=== PATIENT | male | born 1990 | race Caucasian/White ===

== ENCOUNTER 2019-02-21 10:06 | Inpatient (IN) | payer MEDICAID, OTHER ==
[~2019-02-21] VITALS: Ht 180.3 cm; Wt 67.0 kg
[2019-02-21 11:06] LABS: Basophils # (auto) 0 uL; Basophils % (auto) 0.5 % (0.0-2.0); Eosinophils # (auto) 0.1 uL; Eosinophils % (auto) 2.6 % (0.0-7.0); Hematocrit 51.4 % (41.0-53.0); Hemoglobin 17.6 g/dL (13.5-17.5); Lymphocytes # (auto) 1.1 uL; Lymphocytes % (auto) 19.7 % (10.0-50.0); Mean Corpuscular Hemoglobin 32.2 pg (28.0-32.0); Mean Corpuscular Hgb Conc. 34.1 g/dL (32.0-36.0); Mean Corpuscular Volume 94.4 fL (80.0-100.0); Monocytes # (auto) 0.6 uL; Monocytes % (auto) 10.5 % (0.0-12.0); Neutrophils # (auto) 3.6 uL; Neutrophils % (auto) 66.7 % (37.0-80.0); Nucleated Red Blood Cells % 0.1 %; Platelet Count (auto) 271 10^3/uL (140-450); Red Blood Cells 5.45 10^6/uL (4.5-5.90); Red Cell Distribution Width 12.3 % (11.8-14.3); White Blood Cell 5.4 10^3/uL (4.4-10.8)
[2019-02-21 11:22] LABS: Albumin 4.6 g/dL (3.4-5.0); Calcium 9.4 mg/dL (8.5-10.1); Potassium 4.7 mmol/L (3.5-5.1)
[2019-02-21 11:25] LABS: BUN/Creatinine Ratio 14.9; Bilirubin, Total 0.5 mg/dL (0.2-1.0)
[2019-02-21] MEDS ORDERED: ONDANSETRON HCL 4 MG/2 ML VIAL IV ONE ×5 (13:00→22:45)
[2019-02-21] MEDS ORDERED: HYDROmorphone HCL 2 MG/ML VL IV ONE ×2 (13:00→18:00)
[2019-02-21] MEDS ORDERED: diphenhdrAMINE HCL 50 MG/1 ML VL IV ONE ×4 (13:30→23:00)
[2019-02-21] MEDS ORDERED: CARISOPRODOL 350 MG TAB PO ONE ×2 (16:30→19:00)
[2019-02-21] MEDS ORDERED: IOTHALAMATE MEGLUMINE INJ 250ML BOT UR ONE (18:04)
[2019-02-21] MEDS ORDERED: diphenhdrAMINE HCL 50 MG/1 ML VL ONE (18:17)
[2019-02-21] MEDS: cefTRIAXone 1GM/50ML D5W 50 ML IV ONE ×2 (18:45→22:54)
[2019-02-21] MEDS ORDERED: MORPHINE SULFATE 4 MG/ML SYR/VIAL IV ONE (19:00)
[2019-02-21 20:12] LABS: Basophils # (auto) 0.1 uL; Basophils % (auto) 0.7 % (0.0-2.0); Eosinophils # (auto) 0.2 uL; Eosinophils % (auto) 2.4 % (0.0-7.0); Lymphocytes # (auto) 2.1 uL; Lymphocytes % (auto) 25.8 % (10.0-50.0); Mean Corpuscular Hgb Conc. 32.6 g/dL (32.0-36.0); Mean Corpuscular Volume 91.9 fL (80.0-100.0); Monocytes # (auto) 0.5 uL; Monocytes % (auto) 6.1 % (0.0-12.0); Neutrophils # (auto) 5.2 uL; Nucleated Red Blood Cells % 0.1 %; Platelet Count (auto) 179 10^3/uL (140-450); Red Blood Cells 4.35 10^6/uL (4.5-5.90); Red Cell Distribution Width 13.8 % (11.8-14.3); White Blood Cell 7.9 10^3/uL (4.4-10.8)
[2019-02-21] MEDS ORDERED: HYDROmorphone HCL 2 MG/ML VL IV PRN (20:15)
[2019-02-21] MEDS ORDERED: MORPHINE SULF INJ 2 MG/ML SYRINGE 1ML IV PRN (20:15)
[2019-02-21] MEDS ORDERED: NITROGLYCERIN 0.4 MG SL TAB SL PRN (20:15)
[2019-02-21 20:27] LABS: INR 1.05 (0.9-1.15)
[2019-02-21 20:31] LABS: Albumin 4.5 g/dL (3.4-5.0); Anion Gap 5 (5-15); Blood Urea Nitrogen 17 mg/dL (7-18); Calcium 9.1 mg/dL (8.5-10.1); Carbon Dioxide 29 mmol/L (21-32); Chloride 104 mmol/L (98-107); GFR African American 105 mL/min; GFR Non-African American 87 mL/min; Glucose 80 mg/dL (74-106); Potassium 4.7 mmol/L (3.5-5.1); Sodium 138 mmol/L (136-145)
[2019-02-21 20:36] LABS: Alanine Aminotransferase 22 U/L (16-61); Alkaline Phosphatase 76 U/L (45-117); Aspartate Aminotransferase 18 U/L (15-37); Bilirubin, Total 0.7 mg/dL (0.2-1.0)
[2019-02-21] MEDS ORDERED: ETOMIDATE (2MG/ML) 20ML VIAL IV ONE (21:30)
[2019-02-21] MEDS ORDERED: fentaNYL CITRATE 100 MCG/2 ML VL IV ONE (21:30)
[2019-02-21] MEDS ORDERED: LIDOCAINE 2% JELLY 11ml (GLYDO) UR ONE (21:45)
[2019-02-21] MEDS ORDERED: LORazepam 2MG/ML-1ML VIAL ONE (22:07)
[2019-02-21] MEDS ORDERED: MORPHINE SULFATE 10 MG/ML INJ 1ML SDV IV ONE (22:45)
[2019-02-22 00:14] LABS: Amphetamine Screen, Urine NEGATIVE (NEGATIVE); Barbiturate Scree,Urine NEGATIVE (NEGATIVE); Benzodiazephine Screen, Urine NEGATIVE (NEGATIVE); Cannabinoid Screen, Urine POSITIVE (NEGATIVE); Cocaine Screen, Urine NEGATIVE (NEGATIVE); Opiate Scree,Urine POSITIVE (NEGATIVE); Phencyclidine Screen, Urine NEGATIVE (NEGATIVE)
[2019-02-22] MEDS ORDERED: LORazepam 2MG/ML-1ML VIAL IV ONE (00:15)
[2019-02-22 00:16] LABS: Urine Amorphous Crystal FEW /hpf (None Seen); Urine Bacteria MOD /hpf (None Seen); Urine Blood TRACE /uL (Negative); Urine Mucus FEW (None Seen); Urine WBC 521 /hpf (0 - 3); Urine WBC Clumps PRESENT /hpf (None Seen)
[2019-02-22] MEDS ORDERED: ONDANSETRON HCL 4 MG/2 ML VIAL IV PRN (01:15)
[2019-02-22] MEDS ORDERED: LEVOFLOXACIN 750MG 150 ML IV ONE (01:45)
--- NOTE | 2019-02-22 02:45 | NUR ---
MS admit from ER [facility] admitted to tele/MS. Did not receive SBAR. Patient oriented to Vivek cifuentes RN, central unit, 223room, B bed, and unit policies regarding patient care and visiting hours. Patient weighed by bedscale and encouraged to call if they need something. All questions and concerns addressed, patient verbalized understanding.
[2019-02-22] MEDS: HYDROmorphone HCL 2 MG/ML VL IV PRN ×7 (02:52→22:25)
[2019-02-22] MEDS: ONDANSETRON HCL 4 MG/2 ML VIAL IV PRN ×4 (02:53→23:20)
--- NOTE | 2019-02-22 03:00 | NUR ---
paged hospitalist to notify of patient requesting Dilauded dosage increased and benadryl. awaiting call back .
--- NOTE | 2019-02-22 03:05 | NUR ---
Spoke to Jovi and notified him of patient requesting benadryl, and an increase of dilauded. new order given by hospitalist jovi, benadryl 50 mg po one time dose. read back and confirm.
[2019-02-22 03:30] VITALS: BP 124/76
[2019-02-22] MEDS ORDERED: diphenhdrAMINE HCL 25 MG CAP PO ONE (03:30)
--- NOTE | 2019-02-22 03:31 | NUR ---
paged manager of warehouse at patients request.
--- NOTE | 2019-02-22 03:38 | NUR ---
spoke to packing house laborer, and notified him patient requesting to talk to him, and he threatening to take out his singh catheter and wants an increase in pain medication. packing house laborer advised me that he will be up to talk to patient. will notify patient.
[2019-02-22] MEDS: HYDROcodone-ACET 7.5/325MG TAB PO PRN ×4 (03:46→23:20)
--- NOTE | 2019-02-22 04:52 | NUR ---
Telemetry admit from [facility] admitted to Telemetry unit after SBAR received. Patient oriented to Vivek Narayan primary RN, unit, room, bed, and unit policies regarding patient care and visiting hours. Patient now on continuous telemetry monitoring, tele box # [] and telemetry reading on arrival to unit is []. Patient placed on bedside oxygen, weighed by bedscale and encouraged to call if they need something. All questions and concerns addressed, patient verbalized understanding. Note: [] Addendum: 02/22/19 at 0455 by Vivek Narayan RN wrong note.
[2019-02-22 05:00] VITALS: BP 101/57
[2019-02-22] MEDS ORDERED: VARE1TAB PO (06:08)
[2019-02-22] MEDS ORDERED: ALPR0.5T PO (06:08)
--- NOTE | 2019-02-22 07:30 | NUR ---
OPENING NOTE The patient is received alert and oriented times four with no SOB or s/s of distress at this time. The patient is resting in bed in the lowest position with call light within reach, will continue to monitor and POC.
[2019-02-22 09:00] VITALS: BP 93/65
[2019-02-22] MEDS ORDERED: cefTRIAXone 1GM/50ML D5W 50 ML IV SCH (09:00)
[2019-02-22] MEDS: FAMOTIDINE 20 MG TAB PO SCH ×2 (09:34→19:22)
--- NOTE | 2019-02-22 10:20 | NUR ---
HOSPITALIST BEDSIDE Dr. Perez is bedside and updates the patient on the POC.
[2019-02-22] MEDS ORDERED: ERTAPENEM SOD INJ 1 GM in SODIUM CHL 0.9% 50 ML IV ONE (10:30)
[2019-02-22 13:00] VITALS: BP 118/63
--- NOTE | 2019-02-22 15:13 | NUR ---
PHYSICIAN CALLS Dr. Perez calls and is made aware of the patient's current status. Dr. Perez places orders via telephone with read back, will continue POC.
[2019-02-22 17:00] VITALS: BP 98/58
[2019-02-22] MEDS: ALPRAZolam 0.5 MG TAB PO SCH (19:22)
[2019-02-22 21:36] VITALS: BP 145/64
[2019-02-22] MEDS: TEMAZEPAM 15 MG CAP PO PRN (22:25)
[2019-02-23] MEDS: HYDROmorphone HCL 2 MG/ML VL IV PRN ×9 (01:16→20:18)
--- NOTE | 2019-02-23 01:45 | NUR ---
Patient c/o of itching after last dose of Hydromorphone, patient requesting for Benadryl. Hospitalist paged.
--- NOTE | 2019-02-23 02:14 | NUR ---
No callback from Hospitalist, paged again.
[2019-02-23] MEDS ORDERED: diphenhdrAMINE HCL 25 MG CAP PO ONE (02:30)
[2019-02-23 05:29] VITALS: BP 93/61
[2019-02-23 05:58] LABS: Basophils # (auto) 0.1 uL; Basophils % (auto) 1.2 % (0.0-2.0); Eosinophils # (auto) 0.3 uL; Eosinophils % (auto) 5.3 % (0.0-7.0); Hemoglobin 15.3 g/dL (13.5-17.5); Lymphocytes # (auto) 1.7 uL; Mean Corpuscular Hemoglobin 32.1 pg (28.0-32.0); Mean Corpuscular Volume 94.4 fL (80.0-100.0); Monocytes # (auto) 0.5 uL; Monocytes % (auto) 9.8 % (0.0-12.0); Neutrophils # (auto) 2.5 uL; Neutrophils % (auto) 49.7 % (37.0-80.0); Nucleated Red Blood Cells % 0.1 %; Platelet Count (auto) 222 10^3/uL (140-450); Red Blood Cells 4.77 10^6/uL (4.5-5.90); Red Cell Distribution Width 12.3 % (11.8-14.3); White Blood Cell 5.1 10^3/uL (4.4-10.8)
[2019-02-23 06:12] LABS: Calcium 8.7 mg/dL (8.5-10.1); Potassium 4.1 mmol/L (3.5-5.1)
[2019-02-23] MEDS: HYDROcodone-ACET 7.5/325MG TAB PO PRN ×3 (06:50→21:08)
--- NOTE | 2019-02-23 07:30 | NUR ---
Opening Shift Note Assumed care of patient, awake and alert x4. No S/S of distress/SOB, testicular pain of 7/10, will medicate with pain meds per MD order. Respirations are even and unlabored on RA. Updated on POC and instructed to call for assistance as needed, patient verbalized understanding. Bed locked in lowest position, side rails up x2, call light within reach. Will continue to monitor for changes Q1hr and PRN.
[2019-02-23] MEDS: ALPRAZolam 0.5 MG TAB PO SCH ×2 (08:31→21:43)
[2019-02-23] MEDS: FAMOTIDINE 20 MG TAB PO SCH ×2 (08:31→21:43)
[2019-02-23] MEDS: ERTAPENEM SOD INJ 1 GM in SODIUM CHL 0.9% 50 ML IV SCH (08:31)
[2019-02-23 09:00] VITALS: BP 95/55
--- NOTE | 2019-02-23 09:08 | NUR ---
Patient was screaming in pain, checked on the pt. and his catheter came out fully inflated. Pt. states that he had a bladder spasm and it just came out on its own. Will notify
--- NOTE | 2019-02-23 09:33 | NUR ---
MD Perez made aware of catheter coming out.
--- NOTE | 2019-02-23 10:00 | NUR ---
SPOKE WITH DR VELASCO ORDERS RECEIVED TO CONSULT RADIOLOGY FOR PLACEMENT OF LANCE CATHETER UNDER GUIDANCE.
--- NOTE | 2019-02-23 10:10 | NUR ---
SPOKE WITH RADIOLOGY RADIOLOGIST WILL NOT ATTEMPT TO PLACE LANCE CATHETER, FIRST ATTEMPT WAS UNSUCCESSFUL AND DR DANIELLE STATS IT NEEDS TO BE DONE IN OR.
--- NOTE | 2019-02-23 11:00 | NUR ---
SPOKE WITH DR GUZMÁN RECEIVED ORDERS TO REINSERT LANCE CATHETER.
--- NOTE | 2019-02-23 12:15 | NUR ---
LANCE CATHETER UNABLE TO BE REINSERTED. MUCH RESISTANCE MET AFTER SEVERAL PASSES. WILL MAKE DR. GUZMÁN AWARE OF FAILED ATTEMPT.
--- NOTE | 2019-02-23 13:00 | NUR ---
PATIENT IS WELL EDUCATED AND VERY AWARE OF ALL UROLOGICAL ISSUES. STATES THAT URO JET CATHETER WITH LIDOCAINE WILL ONLY INFLAME HIS URETHRA FURTHER. WILL ADVISE DR. GUZMÁN.
[2019-02-23] MEDS: ONDANSETRON HCL 4 MG/2 ML VIAL IV PRN (13:13)
--- NOTE | 2019-02-23 13:38 | NUR ---
PAGED DR. GUZMÁN REGARDING FAILED LANCE CATHETER ATTEMPT.
--- NOTE | 2019-02-23 13:57 | NUR ---
DR. GUZMÁN AT BEDSIDE. DR ATTEMPTED TO INSERT LANCE CATHETER, PATIENT WAS IN TREMENDOUS PAIN ON FIRST INSERTION, STOPPED AND SAID IT WOULD NEED TO BE DONE IN THE OR. WILL PLACE ORDERS. KEEP PATIENT NPO UNTIL FURTHER NOTICE.
--- NOTE | 2019-02-23 16:41 | NUR ---
PATIENT TAKEN TO THE OR FOR PROCEDURE. NO S/S OF DISTRESS UPON DEPARTURE.
[2019-02-23 16:42] VITALS: BP 125/99
--- NOTE | 2019-02-23 17:02 | NUR ---
patient wasn't in the room for 1700 vitals
--- NOTE | 2019-02-23 17:02 | NUR ---
patient was gone for procedure for 1700 vitals
[2019-02-23] MEDS ORDERED: MIDAZOLAM HCL 1MG/1ML-2 ML VIAL ONE ×2 (17:38→18:31)
[2019-02-23] MEDS ORDERED: MIDAZOLAM HCL 1MG/1ML-2 ML VIAL IV ONE (18:00)
[2019-02-23] MEDS ORDERED: ceFAZolin 1GM/50ML 50 ML IV ONE (18:24)
[2019-02-23] MEDS ORDERED: fentaNYL CITRATE 100 MCG/2 ML VL ONE (18:31)
[2019-02-23] MEDS ORDERED: PROPOFOL 10 MG/ML 20 ML IV ONE (18:50)
[2019-02-23] MEDS ORDERED: LIDOCAINE 2% (LOCAL ANESTH.) PF 5ml SDV ONE (18:50)
[2019-02-23] MEDS ORDERED: HYDROmorphone HCL 2 MG/ML VL IV PRN (19:30)
[2019-02-23] MEDS ORDERED: hydrALAZINE HCL 20 MG/ML VL IV PRN (19:30)
[2019-02-23] MEDS ORDERED: ONDANSETRON HCL 4 MG/2 ML VIAL IV PRN (19:30)
[2019-02-23] MEDS ORDERED: ePHEDrine SULFATE 50 MG/ML AMP IV PRN (19:30)
[2019-02-23] MEDS: diphenhdrAMINE HCL 50 MG/1 ML VL IV PRN ×2 (19:40→20:02)
[2019-02-23] MEDS ORDERED: diphenhdrAMINE HCL 50 MG/1 ML VL ONE (19:40)
--- NOTE | 2019-02-23 20:25 | NUR ---
RECEIVED PATIENT FROM OR Patient has arrived on unit from OR. Alondra BUTT has given report on the patient.
--- NOTE | 2019-02-23 20:55 | NUR ---
PATIENT NOT IN ROOM Patient left the unit to smoke AMA.
[2019-02-23 21:45] VITALS: BP 113/73
[2019-02-23] MEDS: TEMAZEPAM 15 MG CAP PO PRN (21:45)
--- NOTE | 2019-02-24 03:00 | NUR ---
PAIN ASSESSMENT The patient requests pain medication for his penile and testicular pain. He reports that his pain is currently 7/10. Will treat with PRN pain medication.
[2019-02-24] MEDS: HYDROmorphone HCL 2 MG/ML VL IV PRN ×4 (03:05→12:39)
[2019-02-24 05:23] VITALS: BP 97/52
--- NOTE | 2019-02-24 07:30 | NUR ---
Opening Shift Note Assumed care of patient, awake and alert x4. No S/S of distress/SOB, testicular pain of 6/10, will medicate with pain meds per MD order. Respirations are even and unlabored on RA. Updated on POC and instructed to call for assistance as needed, patient verbalized understanding. Bed locked in lowest position, side rails up x2, call light within reach. Will continue to monitor for changes Q1hr and PRN.
[2019-02-24 08:00] VITALS: BP 91/54
[2019-02-24] MEDS: HYDROcodone-ACET 7.5/325MG TAB PO PRN (08:11)
[2019-02-24] MEDS: ALPRAZolam 0.5 MG TAB PO SCH (09:50)
[2019-02-24] MEDS: FAMOTIDINE 20 MG TAB PO SCH (09:50)
[2019-02-24] MEDS: ERTAPENEM SOD INJ 1 GM in SODIUM CHL 0.9% 50 ML IV SCH (09:51)
[2019-02-24 12:16] VITALS: BP 91/54
--- NOTE | 2019-02-24 13:15 | NUR ---
Discharge instructions given as ordered. Encourage to follow up with PMD and urologist as instructed. All questions and concerns addressed. Patient verbalized understanding. Medication reconciliation form completed and copy given to patient. IV removed with catheter intact, pressure dressing applied, leg singh catheter remains in place as ordered. Patient refused to be taken to vehicle via wheelchair, walked down with all personal belongings, accompanied by staff. No distress noted at time of departure.
== END 2019-02-24 13:15 | disposition home or self-care (01) | DRG 468 ==
LOC: ER 10:08 → OVERFLOW 10:09 → CENTRAL 02-22 02:35
PROVIDERS: ADMIT Nurse Practitioner Acute Care; ATTEND Internal Medicine
PROC: 0T9B80Z Drainage of Bladder with Drainage Device, Via Natural or Artificial Opening Endoscopic (ICD-10-PCS; principal; 2019-02-23 18:25)
DX: N13.9 Obstructive and reflux uropathy, unspecified (principal); F11.20 Opioid dependence, uncomplicated; N39.0 Urinary tract infection, site not specified; B95.2 Enterococcus as the cause of diseases classified elsewhere; J44.9 Chronic obstructive pulmonary disease, unspecified; F17.210 Nicotine dependence, cigarettes, uncomplicated; Z87.440 Personal history of urinary (tract) infections; Z90.79 Acquired absence of other genital organ(s); Z88.8 Allergy status to other drugs, medicaments and biological substances; R33.9 Retention of urine, unspecified
CPT/HCPCS: 36415; 51702; 71045; 74176; 76870; 80048; 80053; 80307; 81001; 84484; 85025; 85610; 85730; 87086; 87088; 87186; 93005; 96365; 96375; 96376; G0378; J0690; J0696; J1335; J1956; J2001; J2250; J2405; J2704

== ENCOUNTER 2019-02-28 07:37 | Emergency (ER) | payer MEDICAID ==
[~2019-02-28] VITALS: Ht 180.3 cm; Wt 72.6 kg
[~2019-02-28 07:37] MED LIST: ALPR0.5T PO; VARE1TAB PO
[2019-02-28 08:26] VITALS: BP 132/74
== END 2019-02-28 08:43 | disposition left against medical advice (07) ==
LOC: ER 07:40
DX: R33.9 Retention of urine, unspecified (principal); M62.838 Other muscle spasm; F41.9 Anxiety disorder, unspecified; Z53.29 Procedure and treatment not carried out because of patient's decision for other reasons
CPT/HCPCS: 99281; J7030

== ENCOUNTER 2019-04-24 19:09 | Emergency (ER) | payer MEDICAID ==
[~2019-04-24] VITALS: Ht 180.3 cm; Wt 74.8 kg
[2019-04-24] MEDS ORDERED: MORPHINE SULFATE 4 MG/ML SYR/VIAL ONE ×2 (21:54)
[2019-04-24] MEDS ORDERED: LORazepam 2MG/ML-1ML VIAL ONE (21:54)
[2019-04-24] MEDS ORDERED: ONDANSETRON HCL 4 MG/2 ML VIAL ONE (21:55)
[2019-04-24] MEDS ORDERED: diphenhdrAMINE HCL 50 MG/1 ML VL IV ONE (22:15)
[2019-04-24] MEDS ORDERED: ETOMIDATE (2MG/ML) 20ML VIAL IV ONE (22:45)
[2019-04-24 22:58] LABS: Basophils # (auto) 0.1 uL; Eosinophils # (auto) 0.2 uL; Eosinophils % (auto) 2.8 % (0.0-7.0); Hematocrit 46.5 % (41.0-53.0); Lymphocytes # (auto) 2.3 uL; Lymphocytes % (auto) 29.6 % (10.0-50.0); Mean Corpuscular Hemoglobin 31.9 pg (28.0-32.0); Mean Corpuscular Hgb Conc. 34.4 g/dL (32.0-36.0); Mean Corpuscular Volume 92.9 fL (80.0-100.0); Monocytes # (auto) 0.6 uL; Monocytes % (auto) 7.4 % (0.0-12.0); Neutrophils # (auto) 4.7 uL; Neutrophils % (auto) 59.2 % (37.0-80.0); Platelet Count (auto) 305 10^3/uL (140-450); Red Cell Distribution Width 12.1 % (11.8-14.3); White Blood Cell 7.9 10^3/uL (4.4-10.8)
[2019-04-24 23:11] LABS: Albumin 3.9 g/dL (3.4-5.0); BUN/Creatinine Ratio 17.4; Calcium 8.7 mg/dL (8.5-10.1); Potassium 3.7 mmol/L (3.5-5.1)
[2019-04-24 23:14] LABS: Bilirubin, Total 0.2 mg/dL (0.2-1.0); Total Protein 7.8 g/dL (6.4-8.2)
[2019-04-24] MEDS ORDERED: HYDROmorphone HCL 2 MG/ML VL IV ONE (23:45)
[2019-04-25] MEDS ORDERED: diphenhdrAMINE HCL 50 MG/1 ML VL IV ONE
[2019-04-25 00:05] LABS: Urine Bacteria NONE SEEN /hpf (None Seen); Urine Blood Negative /uL (Negative); Urine Specific Gravity 1.019 (1.001-1.035); Urine WBC 24 /hpf (0 - 3)
[2019-04-25] MEDS ORDERED: cefTRIAXone 1GM/50ML D5W 50 ML IV ONE ×4 (00:59→01:00)
[2019-04-25 01:03] VITALS: BP 99/87
[2019-04-25] MEDS ORDERED: HYDROcodone-ACET 10/325MG TAB PO ONE (02:00)
[2019-04-25] MEDS ORDERED: GABAPENTIN 100 MG CAP PO SCH (06:00)
[2019-04-25] MEDS ORDERED: AMIODARONE HCL 200 MG TAB PO SCH (10:00)
== END 2019-04-25 02:46 | disposition home or self-care (01) ==
LOC: ER 19:11
DX: N39.0 Urinary tract infection, site not specified (principal); R33.9 Retention of urine, unspecified; F17.210 Nicotine dependence, cigarettes, uncomplicated; F12.10 Cannabis abuse, uncomplicated; Z88.8 Allergy status to other drugs, medicaments and biological substances
CPT/HCPCS: 36415; 51702; 74176; 80053; 81001; 85025; 96365; 96375; 96376; 99285; J0696; J2060; J2270; J2405

== ENCOUNTER 2019-04-27 23:47 | Emergency (ER) | payer MEDICAID ==
[~2019-04-27] VITALS: Ht 180.3 cm; Wt 72.6 kg
[2019-04-28] MEDS ORDERED: ONDANSETRON HCL 4 MG/2 ML VIAL IV ONE (00:45)
[2019-04-28] MEDS ORDERED: HYDROmorphone HCL 2 MG/ML VL IV ONE ×2 (00:45→03:15)
[2019-04-28] MEDS ORDERED: diphenhdrAMINE HCL 50 MG/1 ML VL IV ONE ×2 (01:00→03:15)
[2019-04-28] MEDS ORDERED: MIDAZOLAM HCL 5 MG/ML-1ML VIAL IV ONE (02:15)
[2019-04-28] MEDS ORDERED: fentaNYL CITRATE 100 MCG/2 ML VL IV ONE (02:15)
[2019-04-28] MEDS ORDERED: ETOMIDATE (2MG/ML) 20ML VIAL IV ONE (03:15)
[2019-04-28] MEDS ORDERED: LORazepam 2MG/ML-1ML VIAL IV ONE (03:15)
[2019-04-28] MEDS ORDERED: LORazepam 2MG/ML-1ML VIAL ONE (03:27)
[2019-04-28 03:30] VITALS: BP 113/74
== END 2019-04-28 04:16 | disposition home or self-care (01) ==
LOC: ER 23:56
DX: R33.9 Retention of urine, unspecified (principal); R10.9 Unspecified abdominal pain; F17.210 Nicotine dependence, cigarettes, uncomplicated; F12.10 Cannabis abuse, uncomplicated; Z88.8 Allergy status to other drugs, medicaments and biological substances
CPT/HCPCS: 51702; 96374; 96375; 96376; 99284; J1170; J1200; J2060; J2250; J2405; J3010

== ENCOUNTER 2019-05-03 21:56 | Emergency (ER) | payer MEDICAID ==
[~2019-05-03] VITALS: Ht 180.3 cm; Wt 72.6 kg
[2019-05-04] MEDS ORDERED: MIDAZOLAM HCL 5 MG/ML-1ML VIAL IV ONE (01:30)
[2019-05-04] MEDS ORDERED: ETOMIDATE (2MG/ML) 20ML VIAL IV ONE (01:30)
[2019-05-04] MEDS ORDERED: MIDAZOLAM HCL 1MG/1ML-2 ML VIAL ONE (01:54)
[2019-05-04] MEDS ORDERED: MIDAZOLAM HCL 1MG/1ML-2 ML VIAL IV ONE (02:00)
[2019-05-04 02:16] VITALS: BP 130/94
[2019-05-04] MEDS ORDERED: diphenhdrAMINE HCL 50 MG/1 ML VL IV ONE (02:30)
== END 2019-05-04 03:22 | disposition home or self-care (01) ==
LOC: ER 21:56
DX: R33.9 Retention of urine, unspecified (principal); F17.210 Nicotine dependence, cigarettes, uncomplicated; F12.10 Cannabis abuse, uncomplicated; Z76.5 Malingerer [conscious simulation]
CPT/HCPCS: 51702; 96374; 99285; J1200; J2250

== ENCOUNTER 2019-05-13 03:06 | Emergency (ER) | payer MEDICAID ==
[~2019-05-13] VITALS: Ht 177.8 cm; Wt 74.8 kg
[2019-05-13] MEDS ORDERED: SODIUM CHLORIDE 0.9% 1,000 ML IV ONE (08:36)
[2019-05-13] MEDS ORDERED: LORazepam 2MG/ML-1ML VIAL IV ONE (09:15)
[2019-05-13] MEDS ORDERED: MORPHINE SULF INJ 2 MG/ML SYRINGE 1ML IV ONE (09:15)
[2019-05-13] MEDS ORDERED: ONDANSETRON HCL 4 MG/2 ML VIAL IV ONE (09:30)
[2019-05-13 09:33] LABS: Basophils # (auto) 0 uL; Basophils % (auto) 0.6 % (0.0-2.0); Eosinophils # (auto) 0.1 uL; Eosinophils % (auto) 1.8 % (0.0-7.0); Hematocrit 44.6 % (41.0-53.0); Hemoglobin 15.5 g/dL (13.5-17.5); Lymphocytes # (auto) 1.7 uL; Lymphocytes % (auto) 22.7 % (10.0-50.0); Mean Corpuscular Hgb Conc. 34.9 g/dL (32.0-36.0); Mean Corpuscular Volume 91.9 fL (80.0-100.0); Monocytes # (auto) 0.5 uL; Monocytes % (auto) 6.9 % (0.0-12.0); Neutrophils # (auto) 5.1 uL; Nucleated Red Blood Cells % 0.1 %; Platelet Count (auto) 257 10^3/uL (140-450); Red Blood Cells 4.85 10^6/uL (4.5-5.90); Red Cell Distribution Width 12.2 % (11.8-14.3); White Blood Cell 7.6 10^3/uL (4.4-10.8)
[2019-05-13] MEDS ORDERED: diphenhdrAMINE HCL 50 MG/1 ML VL ONE (09:35)
[2019-05-13] MEDS ORDERED: diphenhdrAMINE HCL 50 MG/1 ML VL IV ONE (09:45)
[2019-05-13 09:48] LABS: Albumin 3.9 g/dL (3.4-5.0); BUN/Creatinine Ratio 17.5; Calcium 8.3 mg/dL (8.5-10.1); Magnesium 1.9 mg/dL (1.6-2.6); Potassium 3.8 mmol/L (3.5-5.1)
[2019-05-13 09:51] LABS: Bilirubin, Total 0.2 mg/dL (0.2-1.0); Total Protein 7.3 g/dL (6.4-8.2)
[2019-05-13] MEDS ORDERED: PROPOFOL 10 MG/ML 20 ML IV ONE ×6 (12:30→16:15)
[2019-05-13] MEDS ORDERED: MIDAZOLAM HCL 5 MG/ML-1ML VIAL IV ONE ×2 (12:30→16:15)
[2019-05-13] MEDS ORDERED: MIDAZOLAM HCL 1MG/1ML-2 ML VIAL ONE (12:46)
[2019-05-13 14:19] VITALS: BP 110/78
[2019-05-13] MEDS ORDERED: ETOMIDATE (2MG/ML) 20ML VIAL IV ONE (16:15)
== END 2019-05-13 16:16 | disposition left against medical advice (07) ==
LOC: ER 03:12
DX: R33.9 Retention of urine, unspecified (principal); N32.89 Other specified disorders of bladder
CPT/HCPCS: 36415; 51702; 80053; 83735; 85025; 96374; 96375; 99152; 99153; 99285; J1200; J2060; J2250; J2270; J2405; J2704

== ENCOUNTER 2020-03-21 20:37 | Emergency (ER) | payer MEDICAID ==
[~2020-03-21] VITALS: Ht 180.3 cm; Wt 72.6 kg
[2020-03-22] MEDS ORDERED: HYDROmorphone HCL 2 MG/ML VL IV ONE ×2 (02:15→03:15)
[2020-03-22] MEDS ORDERED: diphenhdrAMINE HCL 50 MG/1 ML VL IV ONE (02:15)
[2020-03-22 02:32] VITALS: BP 130/105
[2020-03-22] MEDS ORDERED: ONDANSETRON HCL 4 MG/2 ML VIAL IV ONE (02:45)
== END 2020-03-22 03:58 | disposition home or self-care (01) ==
LOC: ER 20:37
DX: N13.9 Obstructive and reflux uropathy, unspecified (principal); F41.9 Anxiety disorder, unspecified; F17.210 Nicotine dependence, cigarettes, uncomplicated; Z88.8 Allergy status to other drugs, medicaments and biological substances; Z79.899 Other long term (current) drug therapy
CPT/HCPCS: 96374; 96375; 96376; 99284; J1170; J1200; J2405

== ENCOUNTER 2020-03-31 08:01 | Emergency (ER) | payer MEDICAID ==
[~2020-03-31] VITALS: Ht 177.8 cm; Wt 72.6 kg
[2020-03-31 08:53] LABS: Basophils # (auto) 0 10 ^3/uL (0-0.2); Basophils % (auto) 0.5 % (0.0-2.0); Eosinophils # (auto) 0 10 ^3/uL (0-0.8); Eosinophils % (auto) 0.4 % (0.0-7.0); Hematocrit 44.3 % (41.0-53.0); Hemoglobin 15.2 g/dL (13.5-17.5); Lymphocytes # (auto) 0.9 10 ^3/uL (0.4-5.4); Lymphocytes % (auto) 10.3 % (10.0-50.0); Mean Corpuscular Hgb Conc. 34.3 g/dL (32.0-36.0); Mean Corpuscular Volume 90.6 fL (80.0-100.0); Monocytes # (auto) 0.4 10 ^3/uL (0-1.3); Neutrophils # (auto) 7.5 10 ^3/uL (1.6-8.6); Neutrophils % (auto) 83.8 % (37.0-80.0); Platelet Count (auto) 302 10^3/uL (140-450); Red Blood Cells 4.89 10^6/uL (4.5-5.90); Red Cell Distribution Width 12.3 % (11.8-14.3); White Blood Cell 8.9 10^3/uL (4.4-10.8)
[2020-03-31 09:21] LABS: Albumin 4.2 g/dL (3.4-5.0); BUN/Creatinine Ratio 12.1; Calcium 8.7 mg/dL (8.5-10.1); Potassium 3.3 mmol/L (3.5-5.1)
[2020-03-31 09:24] LABS: Bilirubin, Total 0.4 mg/dL (0.2-1.0); Total Protein 7.6 g/dL (6.4-8.2)
[2020-03-31] MEDS ORDERED: ONDANSETRON HCL 4 MG/2 ML VIAL IV ONE ×2 (10:45→15:00)
[2020-03-31] MEDS ORDERED: HYDROmorphone HCL 2 MG/ML VL IV ONE ×2 (10:45→15:00)
[2020-03-31] MEDS ORDERED: diphenhdrAMINE HCL 50 MG/1 ML VL ONE (10:52)
[2020-03-31] MEDS ORDERED: diphenhdrAMINE HCL 50 MG/1 ML VL IV ONE (11:00)
[2020-03-31 11:25] LABS: INR 1.04 (0.9-1.15); Partial Thromboplastin Time 25.9 sec (23.0-31.2)
[2020-03-31] MEDS ORDERED: POTASSIUM CHL 20 Meq TABLET PO ONE ×2 (13:00→14:45)
[2020-03-31] MEDS ORDERED: ETOMIDATE (2MG/ML) 20ML VIAL IV ONE (14:15)
[2020-03-31] MEDS ORDERED: LIDOCAINE 2%HCL (LOCAL ANESTH.) INJ 20ML MDV ONE (14:19)
[2020-03-31 14:58] VITALS: BP 138/108
== END 2020-03-31 15:44 | disposition home or self-care (01) ==
LOC: ER 08:01
DX: Z46.6 Encounter for fitting and adjustment of urinary device (principal); N13.8 Other obstructive and reflux uropathy; E87.6 Hypokalemia; Z88.8 Allergy status to other drugs, medicaments and biological substances
CPT/HCPCS: 36415; 51705; 71045; 74176; 76942; 80053; 83690; 83735; 85025; 85610; 85730; 96374; 96375; 96376; 99152; 99285; J1170; J1200; J2405; 51702

== ENCOUNTER 2020-04-06 05:48 | Emergency (ER) | payer MEDICAID ==
[~2020-04-06] VITALS: Ht 177.8 cm; Wt 72.6 kg
[2020-04-06 07:14] LABS: Basophils # (auto) 0.1 10 ^3/uL (0-0.2); Basophils % (auto) 1.2 % (0.0-2.0); Eosinophils # (auto) 0.2 10 ^3/uL (0-0.8); Eosinophils % (auto) 3.5 % (0.0-7.0); Hematocrit 43.9 % (41.0-53.0); Hemoglobin 15.2 g/dL (13.5-17.5); Lymphocytes # (auto) 2.2 10 ^3/uL (0.4-5.4); Lymphocytes % (auto) 33.1 % (10.0-50.0); Mean Corpuscular Hemoglobin 31.5 pg (28.0-32.0); Mean Corpuscular Hgb Conc. 34.7 g/dL (32.0-36.0); Mean Corpuscular Volume 90.9 fL (80.0-100.0); Monocytes # (auto) 0.7 10 ^3/uL (0-1.3); Neutrophils # (auto) 3.5 10 ^3/uL (1.6-8.6); Neutrophils % (auto) 52.2 % (37.0-80.0); Platelet Count (auto) 295 10^3/uL (140-450); Red Blood Cells 4.83 10^6/uL (4.5-5.90); Red Cell Distribution Width 12.3 % (11.8-14.3); White Blood Cell 6.6 10^3/uL (4.4-10.8)
[2020-04-06] MEDS ORDERED: MIDAZOLAM HCL 5 MG/ML-1ML VIAL IV ONE (07:15)
[2020-04-06] MEDS ORDERED: SODIUM CHLORIDE 0.9% 1,000 ML IV ONE (07:15)
[2020-04-06] MEDS ORDERED: HYDROmorphone HCL 2 MG/ML VL IV ONE (07:15)
[2020-04-06 07:32] LABS: Albumin 4.4 g/dL (3.4-5.0); Calcium 8.9 mg/dL (8.5-10.1); Potassium 3.6 mmol/L (3.5-5.1)
[2020-04-06 07:36] LABS: Bilirubin, Total 0.2 mg/dL (0.2-1.0); Total Protein 7.6 g/dL (6.4-8.2)
[2020-04-06 07:49] LABS: INR 1.02 (0.9-1.15); Magnesium 2.1 mg/dL (1.6-2.6); Partial Thromboplastin Time 26.2 sec (23.0-31.2)
[2020-04-06] MEDS ORDERED: LIDOCAINE 2%HCL (LOCAL ANESTH.) INJ 10ml MDV IJ ONE (08:30)
[2020-04-06 09:00] VITALS: BP 117/82
[2020-04-06 09:00] LABS: Urine Bacteria FEW /hpf (None Seen); Urine Blood Negative /uL (Negative); Urine Specific Gravity 1.008 (1.001-1.035); Urine WBC 44 /hpf (0 - 3)
== END 2020-04-06 09:21 | disposition home or self-care (01) ==
LOC: ER 05:48
DX: N39.0 Urinary tract infection, site not specified (principal); N13.9 Obstructive and reflux uropathy, unspecified; R74.8 Abnormal levels of other serum enzymes
CPT/HCPCS: 36415; 51702; 80053; 81001; 83690; 83735; 85025; 85610; 85730; 96361; 96374; 99285; J1170; J2250; J7030; 96360; J2001

== ENCOUNTER 2020-04-20 15:46 | Emergency (ER) | payer MEDICAID ==
[~2020-04-20] VITALS: Ht 177.8 cm; Wt 72.6 kg
[2020-04-20 16:14] VITALS: BP 160/92
== END 2020-04-20 18:11 | disposition left against medical advice (07) ==
LOC: EDBD 15:46 → ER 15:51
DX: R10.9 Unspecified abdominal pain (principal); Z53.21 Procedure and treatment not carried out due to patient leaving prior to being seen by health care provider

== ENCOUNTER 2020-05-01 05:54 | Emergency (ER) | payer MEDICAID ==
[~2020-05-01] VITALS: Ht 177.8 cm; Wt 63.5 kg
[2020-05-01 08:03] LABS: Basophils # (auto) 0 10 ^3/uL (0-0.2); Basophils % (auto) 0.5 % (0.0-2.0); Eosinophils # (auto) 0 10 ^3/uL (0-0.8); Eosinophils % (auto) 0.2 % (0.0-7.0); Hematocrit 50.7 % (41.0-53.0); Hemoglobin 17.1 g/dL (13.5-17.5); Lymphocytes # (auto) 1.3 10 ^3/uL (0.4-5.4); Lymphocytes % (auto) 14.2 % (10.0-50.0); Mean Corpuscular Hemoglobin 30.7 pg (28.0-32.0); Mean Corpuscular Hgb Conc. 33.7 g/dL (32.0-36.0); Monocytes # (auto) 0.5 10 ^3/uL (0-1.3); Monocytes % (auto) 5.9 % (0.0-12.0); Neutrophils # (auto) 7.3 10 ^3/uL (1.6-8.6); Neutrophils % (auto) 79.2 % (37.0-80.0); Nucleated Red Blood Cells % 0.1 %; Platelet Count (auto) 418 10^3/uL (140-450); Red Blood Cells 5.56 10^6/uL (4.5-5.90); Red Cell Distribution Width 12.8 % (11.8-14.3); White Blood Cell 9.2 10^3/uL (4.4-10.8)
[2020-05-01 08:15] LABS: Albumin 4.5 g/dL (3.4-5.0); BUN/Creatinine Ratio 13.1; Calcium 9.3 mg/dL (8.5-10.1); Potassium 4.1 mmol/L (3.5-5.1)
[2020-05-01 08:18] LABS: Bilirubin, Total 0.3 mg/dL (0.2-1.0); Total Protein 8.6 g/dL (6.4-8.2)
[2020-05-01] MEDS ORDERED: MIDAZOLAM HCL 5 MG/ML-1ML VIAL IV ONE (12:45)
[2020-05-01] MEDS ORDERED: MIDAZOLAM HCL 10 ML IV ONE (12:50)
[2020-05-01] MEDS ORDERED: diphenhdrAMINE HCL 50 MG/1 ML VL ONE (12:59)
[2020-05-01] MEDS: fentaNYL CITRATE 100 MCG/2 ML VL IV ONE ×2 (13:06→14:01)
[2020-05-01] MEDS ORDERED: fentaNYL CITRATE 100 MCG/2 ML VL ONE ×2 (13:59→14:04)
[2020-05-01] MEDS ORDERED: fentaNYL CITRATE 100 MCG/2 ML VL IV ONE (14:30)
[2020-05-01] MEDS ORDERED: diphenhdrAMINE HCL 50 MG/1 ML VL IV ONE ×3 (14:30→22:15)
[2020-05-01] MEDS ORDERED: LIDOCAINE 2% JELLY 11ml (GLYDO) ONE (16:19)
[2020-05-01] MEDS ORDERED: LORazepam 2MG/ML-1ML VIAL IV ONE (17:00)
[2020-05-01] MEDS ORDERED: HYDROmorphone HCL 2 MG/ML VL IV ONE (17:00)
[2020-05-01] MEDS ORDERED: ONDANSETRON HCL 4 MG/2 ML VIAL IV ONE (20:15)
[2020-05-01] MEDS ORDERED: ALPRAZolam 0.5 MG TAB PO ONE (20:15)
[2020-05-01] MEDS ORDERED: CEPHALEXIN 250 MG CAP PO ONE (20:15)
[2020-05-01] MEDS ORDERED: HYDROmorphone HCL 2 MG/ML VL IM ONE (22:15)
[2020-05-01] MEDS ORDERED: ETOMIDATE (2MG/ML) 20ML VIAL IV ONE (23:30)
[2020-05-02] MEDS ORDERED: PROPOFOL 10 MG/ML 20 ML IV ONE (00:45)
[2020-05-02] MEDS ORDERED: PROPOFOL 100 ML IV ONE (00:56)
[2020-05-02] MEDS ORDERED: ETOMIDATE (2MG/ML) 20ML VIAL IV ONE ×2 (00:56→00:57)
[2020-05-02 01:19] VITALS: BP 115/70
[2020-05-02] MEDS ORDERED: diphenhdrAMINE HCL 50 MG/1 ML VL IV ONE (02:45)
[2020-05-02] MEDS ORDERED: HYDROmorphone HCL 2 MG/ML VL IV ONE (02:45)
== END 2020-05-02 03:51 | disposition home or self-care (01) ==
LOC: ER 05:54
DX: N39.9 Disorder of urinary system, unspecified (principal); F17.210 Nicotine dependence, cigarettes, uncomplicated; Z88.8 Allergy status to other drugs, medicaments and biological substances; Z20.828 Contact with and (suspected) exposure to other viral communicable diseases
CPT/HCPCS: 36415; 51702; 76705; 80053; 85025; 87426; 96372; 96374; 96375; 96376; 99285; C9803; J1170; J1200; J2060; J2250; J2405; J2704; J3010; U0003

== ENCOUNTER 2020-05-06 00:18 | Emergency (ER) | payer MEDICAID ==
[~2020-05-06] VITALS: Ht 177.8 cm; Wt 68.0 kg
[2020-05-06 01:35] VITALS: BP 147/100
== END 2020-05-06 07:30 | disposition left against medical advice (07) ==
LOC: ER 00:18
DX: T83.028A Displacement of other urinary catheter, initial encounter (principal); Z53.21 Procedure and treatment not carried out due to patient leaving prior to being seen by health care provider

== ENCOUNTER 2020-05-17 19:11 | Emergency (ER) | payer MEDICAID ==
[~2020-05-17] VITALS: Ht 180.3 cm; Wt 72.6 kg
[2020-05-17 19:39] VITALS: BP 105/77
== END 2020-05-18 07:45 | disposition left against medical advice (07) ==
LOC: ER 19:11
DX: N23 Unspecified renal colic (principal); Z53.21 Procedure and treatment not carried out due to patient leaving prior to being seen by health care provider

== ENCOUNTER 2020-06-04 18:26 | Emergency (ER) | payer MEDICAID ==
[~2020-06-04] VITALS: Ht 177.8 cm; Wt 72.6 kg
[2020-06-04 19:30] VITALS: BP 113/92
[2020-06-04] MEDS ORDERED: LIDOCAINE HCL 2% TOP JELLY 5ML TOP ONE (21:30)
[2020-06-04] MEDS ORDERED: HYDROcodone-ACET 10/325MG TAB PO ONE (21:30)
[2020-06-04] MEDS ORDERED: ONDANSETRON ODT 4 MG TAB PO ONE (21:30)
== END 2020-06-05 03:29 | disposition left against medical advice (07) ==
LOC: ER 18:28
DX: R33.8 Other retention of urine (principal); R32 Unspecified urinary incontinence; R11.2 Nausea with vomiting, unspecified; F41.9 Anxiety disorder, unspecified; F17.210 Nicotine dependence, cigarettes, uncomplicated; Z87.440 Personal history of urinary (tract) infections; Z79.899 Other long term (current) drug therapy; Z88.8 Allergy status to other drugs, medicaments and biological substances
CPT/HCPCS: 76705

== ENCOUNTER 2020-07-16 04:18 | Emergency (ER) | payer MEDICAID ==
[~2020-07-16] VITALS: Ht 180.3 cm; Wt 72.6 kg
[2020-07-16 04:41] VITALS: BP 131/79
== END 2020-07-16 05:09 | disposition left against medical advice (07) ==
LOC: ER 04:18
DX: T83.028A Displacement of other urinary catheter, initial encounter (principal); F17.210 Nicotine dependence, cigarettes, uncomplicated; Z88.8 Allergy status to other drugs, medicaments and biological substances; X58.XXXA Exposure to other specified factors, initial encounter; Y93.89 Activity, other specified; Y92.89 Other specified places as the place of occurrence of the external cause; Y99.8 Other external cause status